=== PATIENT | male | born 1995 | race Caucasian/White ===

== ENCOUNTER 2016-10-11 20:30 | Emergency (ER) | payer OTHER ==
--- NOTE | 2016-10-16 19:20 | ER ---
ADMIT: 10/11/2016 RM/LOC: ER [facility] MR#: [id number] [facility] [id number] TRAVISPRICILLA MARILYNN Portillo [address] [place] [address] Emergency Room Report SEX: M AGE: 21 : 1995 DATE: 10/11/2016 The patient is a 21-year-old male, complaining of spontaneous right posterior auricular and anterior chain lymphadenitis without known injury, sore throat. Does admit to fevers and chills. It began suddenly tonight, started on cefdinir by Dr. Ya. Prior history of right cervical lymph node biopsy by Dr. Foreman. No prior history of brachial cleft cyst. Exam remarkable for nontoxic, febrile male with grade 1 facial acne and reactive lymph node right posterior auricular and anterior chain. Patient given Rocephin 1 g IM. Continue cefdinir, hydrocodone 5/325 #20, Toradol 30 mg/Dilaudid 1 mg/Reglan 5 mg IM for pain. Follow up Dr. Ya or Dr. Fraser in 2 weeks. Yon Lucero MD/ nettal JOB #: [id number] CC: Yon Lucero MD, Attending Physician Armani Ya MD, Family Physician MD Armani Prasad MD
== END 2016-10-11 21:50 | disposition home or self-care (01) ==
LOC: ER 20:30
DX: R59.0 Localized enlarged lymph nodes (principal); Z79.899 Other long term (current) drug therapy; Z90.89 Acquired absence of other organs